=== PATIENT | female | born 1955 | race Caucasian/White ===

== ENCOUNTER → 2023-05-15 07:01 | Outpatient (REF) | payer OTHER, SELFPAY ==
[2023-05-15 09:51] LABS: % Basophils 0.5 % (0-2); % Eosinophils 3.4 % (0-6); % Immature Granulocytes 0.4 % (0-0.5); % Monocytes 6.7 % (1.7-9.3); Absolute Eosinophils 0.3 10^3/uL (0-0.7); Absolute Lymphocytes 1.6 10^3/uL (1.2-3.4); Absolute Monocytes 0.5 10^3/uL (0.1-0.6); Absolute Neutrophils 5.1 10^3/uL (1.4-6.5); Mean Corp Hgb Conc. 32.5 g/dL (33.0-37.0); Mean Corpuscular Hgb 30.4 pg (27.0-31.0); Mean Corpuscular Volume 93.5 fL (81.0-99.0); Mean Platelet Volume 10.9 fL (7.4-10.4); Nucleated Red Blood Cells % 0 %; Platelet Count 239 10^3/uL (130-400); Red Blood Cell Count 4.28 10^6/uL (4.20-5.40); White Blood Cell Count 7.4 10^3/uL (4.8-10.8)
[2023-05-15 10:19] LABS: ALT (SGPT) 40 U/L (0-35); AST (SGOT) 34 U/L (14-36); Albumin 4.2 g/dl (3.5-5.0); Alkaline Phosphatase 152 U/L (38-126); Blood Urea Nitrogen 28 mg/dl (7-17); Calcium 9.6 mg/dl (8.4-10.2); Carbon Dioxide 29 mmol/L (22-30); Chloride 99 mmol/L (98-107); Glucose 127 mg/dl (70-99); HDL Cholesterol 44 mg/dl; LDL Cholesterol, Calculated 95 mg/dl; Sodium 138 mmol/L (135-145); Total Bilirubin 0.6 mg/dl (0.2-1.3); Total Cholesterol 153 mg/dl (50-199); Total Protein 6.7 g/dl (6.3-8.2); Triglyceride 72 mg/dl (10-149); Very Low Density Lipoprotein 14 mg/dl (0-30); eGFR > 60.00
[2023-05-15 10:23] LABS: Potassium 4.5 mmol/L (3.5-5.1)
[2023-05-15 10:38] LABS: Vitamin D, 25-OH*** 68.1 ng/mL (30-80)
[2023-05-15 11:58] LABS: Glycohemoglobin (HgbA1c) 6.5 % (4.0-5.6)
== END ==
LOC: HWLAB 07:01
PROVIDERS: ATTENDING PHYSICIAN Internal Medicine Rheumatology; FAMILY PHYSICIAN Physician Assistant
DX: E55.9 Vitamin D deficiency, unspecified (principal); I73.00 Raynaud's syndrome without gangrene; M19.042 Primary osteoarthritis, left hand; M25.50 Pain in unspecified joint; M25.532 Pain in left wrist; M50.30 Other cervical disc degeneration, unspecified cervical region; M79.641 Pain in right hand; M79.642 Pain in left hand; M79.7 Fibromyalgia; R76.8 Other specified abnormal immunological findings in serum; R79.82 Elevated C-reactive protein (CRP); R94.5 Abnormal results of liver function studies; Z68.41 Body mass index [BMI] 40.0-44.9, adult; Z79.899 Other long term (current) drug therapy; M54.50 Low back pain, unspecified; R73.03 Prediabetes; Z65.3 Problems related to other legal circumstances; Z85.3 Personal history of malignant neoplasm of breast; K21.9 Gastro-esophageal reflux disease without esophagitis; M32.9 Systemic lupus erythematosus, unspecified; E66.01 Morbid (severe) obesity due to excess calories
CPT/HCPCS: 36415; 72114; 80053; 80061; 82306; 83036; 85025; 86140

== ENCOUNTER → 2023-11-16 07:24 | Outpatient (REF) | payer OTHER, SELFPAY ==
[2023-11-16 10:14] LABS: ALT (SGPT) 37 U/L (0-35); AST (SGOT) 32 U/L (14-36); Albumin 4.2 g/dl (3.5-5.0); Alkaline Phosphatase 137 U/L (38-126); Alkaline Phosphatase, Total 137 U/L (38-126); Blood Urea Nitrogen 27 mg/dl (7-17); Calcium 9.4 mg/dl (8.4-10.2); Carbon Dioxide 29 mmol/L (22-30); Chloride 100 mmol/L (98-107); Glucose 137 mg/dl (70-99); Potassium 4.5 mmol/L (3.5-5.1); Sodium 140 mmol/L (135-145); Total Bilirubin 0.3 mg/dl (0.2-1.3); Total Protein 6.5 g/dl (6.3-8.2); eGFR > 60.00
[2023-11-16 10:27] LABS: Glycohemoglobin (HgbA1c) 6.6 % (4.0-5.6)
[2023-11-16 10:30] LABS: Microalbumin, Random Urine <0.6 mg/dl (0.6-1.7)
[2023-11-16 13:32] LABS: Hepatitis B Surface Antigen Negative (Negative)
[2023-11-16 13:50] LABS: Hepatitis C Antibody Negative (Negative)
[2023-11-16 14:19] LABS: Alk Phos After Heat 64; Alkaline Phosphatase Percent 46.72
== END ==
LOC: HWLAB 07:24
PROVIDERS: ATTENDING PHYSICIAN Internal Medicine Rheumatology; FAMILY PHYSICIAN Family Medicine
DX: E55.9 Vitamin D deficiency, unspecified (principal); G62.9 Polyneuropathy, unspecified; I73.00 Raynaud's syndrome without gangrene; M19.042 Primary osteoarthritis, left hand; M25.50 Pain in unspecified joint; M50.30 Other cervical disc degeneration, unspecified cervical region; M51.379 Other intervertebral disc degeneration, lumbosacral region without mention of lumbar back pain or lower extremity pain; M54.50 Low back pain, unspecified; M79.641 Pain in right hand; M79.7 Fibromyalgia; R76.8 Other specified abnormal immunological findings in serum; R79.82 Elevated C-reactive protein (CRP); R94.5 Abnormal results of liver function studies; Z68.41 Body mass index [BMI] 40.0-44.9, adult; Z79.899 Other long term (current) drug therapy; R74.8 Abnormal levels of other serum enzymes; R73.03 Prediabetes
CPT/HCPCS: 36415; 80053; 82043; 82248; 82570; 83036; 84078; 86803; 87340

== ENCOUNTER → 2024-03-19 07:06 | Outpatient (REF) | payer OTHER, SELFPAY ==
[2024-03-19 10:05] LABS: Urine Albumin 1+ (Neg - Trace); Urine Bilirubin Negative (Negative); Urine Character Clear (Clear); Urine Color Yellow; Urine Glucose Negative (Negative); Urine Ketone Negative (Negative); Urine Leukocyte 2+ (Negative); Urine Nitrite Negative (Negative); Urine Occult Blood 2+ (Negative); Urine Urobilinogen Negative (Neg - 1+)
[2024-03-19 10:12] LABS: % Basophils 0.6 % (0-2); % Eosinophils 3.8 % (0-6); % Immature Granulocytes 0.5 % (0-0.5); % Lymphocytes 20.5 % (20.5-51.1); % Monocytes 7.2 % (1.7-9.3); % Neutrophils 67.4 % (42.2-75.2); Absolute Basophils 0.1 10^3/uL (0-0.2); Absolute Eosinophils 0.3 10^3/uL (0-0.7); Absolute Lymphocytes 1.7 10^3/uL (1.2-3.4); Absolute Monocytes 0.6 10^3/uL (0.1-0.6); Absolute Neutrophils 5.5 10^3/uL (1.4-6.5); Hematocrit 42.6 % (37.0-47.0); Hemoglobin 13.7 g/dL (12.0-16.0); Mean Corp Hgb Conc. 32.2 g/dL (33.0-37.0); Mean Corpuscular Hgb 29.7 pg (27.0-31.0); Mean Corpuscular Volume 92.4 fL (81.0-99.0); Nucleated Red Blood Cells % 0 %; Platelet Count 232 10^3/uL (130-400); Red Blood Cell Count 4.61 10^6/uL (4.20-5.40); Red Cell Dist. Width 12.7 % (11.5-14.5); White Blood Cell Count 8.2 10^3/uL (4.8-10.8)
[2024-03-19 10:52] LABS: Urine Amorphous Seen; Urine Mucus Many
[2024-03-19 11:13] LABS: ALT (SGPT) 46 U/L (0-35); AST (SGOT) 36 U/L (14-36); Alkaline Phosphatase 143 U/L (38-126); Blood Urea Nitrogen 30 mg/dl (7-17); Calcium 9.1 mg/dl (8.4-10.2); Carbon Dioxide 27 mmol/L (22-30); Chloride 101 mmol/L (98-107); Creatine Phosphokinase 105 U/L (30-135); Glucose 129 mg/dl (70-99); Magnesium 1.9 mg/dl (1.6-2.3); Phosphorus 3.5 mg/dl (2.5-4.5); Potassium 4.7 mmol/L (3.5-5.1); Sodium 137 mmol/L (135-145); Total Bilirubin 0.6 mg/dl (0.2-1.3); Total Cholesterol 161 mg/dl (50-199); Total Protein 6.4 g/dl (6.3-8.2); Triglyceride 83 mg/dl (10-149); Uric Acid 5.1 mg/dl (2.5-6.2); Very Low Density Lipoprotein 16 mg/dl (0-30); eGFR > 60.00
[2024-03-19 15:32] LABS: HDL Cholesterol 42 mg/dl; LDL Cholesterol, Calculated 103 mg/dl
[2024-03-19 16:18] LABS: Free T4 1.05 ng/dl (0.78-2.19); Vitamin D, 25-OH*** 59.5 ng/mL (30-80)
[2024-03-19 16:34] LABS: TSH 2.91 uIU/ml (0.47-4.68)
[2024-03-19 16:51] LABS: Vitamin B12 936 pg/ml (239-931)
== END ==
LOC: HWLAB 07:06
PROVIDERS: ATTENDING PHYSICIAN Internal Medicine Rheumatology; FAMILY PHYSICIAN Family Medicine
DX: E11.65 Type 2 diabetes mellitus with hyperglycemia (principal); I10 Essential (primary) hypertension; E78.5 Hyperlipidemia, unspecified; E55.9 Vitamin D deficiency, unspecified; E53.8 Deficiency of other specified B group vitamins; I73.00 Raynaud's syndrome without gangrene; M19.042 Primary osteoarthritis, left hand; Z79.899 Other long term (current) drug therapy
CPT/HCPCS: 36415; 80053; 80061; 81003; 81015; 82306; 82550; 82607; 83036; 83735; 84100; 84439; 84443; 84550; 85025; 86140

== ENCOUNTER → 2024-07-23 06:46 | Outpatient (REF) | payer OTHER, SELFPAY ==
[2024-07-23 09:48] LABS: ALT (SGPT) 28 U/L (0-35); AST (SGOT) 27 U/L (14-36); Albumin 4.3 g/dl (3.5-5.0); Alkaline Phosphatase 116 U/L (38-126); Blood Urea Nitrogen 30 mg/dl (7-17); Calcium 9.8 mg/dl (8.4-10.2); Carbon Dioxide 30 mmol/L (22-30); Chloride 106 mmol/L (98-107); Glucose 127 mg/dl (70-99); Potassium 4.2 mmol/L (3.5-5.1); Sodium 142 mmol/L (135-145); Total Bilirubin 0.7 mg/dl (0.2-1.3); Total Protein 6.8 g/dl (6.3-8.2); eGFR > 60.00
[2024-07-23 09:50] LABS: Urine Albumin 1+ (Neg - Trace); Urine Bilirubin Negative (Negative); Urine Character Cloudy (Clear); Urine Color Yellow; Urine Glucose Negative (Negative); Urine Ketone Negative (Negative); Urine Leukocyte 2+ (Negative); Urine Nitrite Negative (Negative); Urine Occult Blood 2+ (Negative); Urine Urobilinogen Negative (Neg - 1+)
[2024-07-23 10:27] LABS: Glycohemoglobin (HgbA1c) 6.3 % (4.0-5.6)
[2024-07-23 11:18] LABS: Urine Urothelial Cell 0-2 /LPF (FEW)
[2024-07-23 11:19] LABS: Urine Amorphous Seen
[2024-07-23 11:21] LABS: Urine Mucus Few; Urine Red Blood Cell 0-2 /HPF (0-2); Urine Squamous Cell 0-2 /LPF (Few); Urine White Cell 0-2 /HPF (0-5)
[2024-07-25 07:36] LABS: Mitochondrial M2 Ab, IgG 14.1 Units (0.0-24.9)
[2024-07-26 02:29] LABS: F-Actin Antibody IgG 19 Units (0-19)
== END ==
LOC: HWLAB 06:46
PROVIDERS: ATTENDING PHYSICIAN Family Medicine; REFERRING PHYSICIAN Internal Medicine Rheumatology
DX: R31.29 Other microscopic hematuria (principal); E11.65 Type 2 diabetes mellitus with hyperglycemia; R79.89 Other specified abnormal findings of blood chemistry
CPT/HCPCS: 36415; 80053; 81003; 81015; 82043; 83036; 86015; 86381; 88112

== ENCOUNTER → 2024-11-13 10:20 | Outpatient (REF) | payer MEDICARE, OTHER, SELFPAY | LOC: HWRAD 10:20 | PROVIDERS: ATTENDING PHYSICIAN Family Medicine; REFERRING PHYSICIAN Internal Medicine Hematology & Oncology | DX: M54.2 Cervicalgia (principal); M54.50 Low back pain, unspecified | CPT/HCPCS: 72040; 72072; 72100; 72190 ==